=== PATIENT | female | born 1995 | race Caucasian/White ===

== ENCOUNTER 2020-07-18 09:57 | Emergency (ER) | payer OTHER ==
[~2020-07-18] VITALS: Ht 175.3 cm; Wt 45.0 kg
[2020-07-18] MEDS ORDERED: HYDROcodone/acetaminophen 10/325mg tab PO ONE (10:25)
[2020-07-18 12:00] VITALS: BP 105/71
[2020-07-18] MEDS ORDERED: HYDR-4353 PO (12:10)
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
== END 2020-07-18 12:31 | disposition home or self-care (01) ==
LOC: ER 09:57
DX: S52.222A Displaced transverse fracture of shaft of left ulna, initial encounter for closed fracture (principal); F12.90 Cannabis use, unspecified, uncomplicated; Y08.89XA Assault by other specified means, initial encounter; Y93.89 Activity, other specified; Y92.89 Other specified places as the place of occurrence of the external cause; Y99.8 Other external cause status
CPT/HCPCS: 29125; 73090; 99283